=== PATIENT | male | born 1935 | race Caucasian/White ===

== ENCOUNTER → 2016-08-01 | Outpatient (CLI) | payer OTHER ==
[~2016-08-01] MED LIST: ASPI81TA28 PO; CHOL100027 PO; CITA40TA12 PO; CLOP1TAB15 PO; FERR325T51 PO; LPR25 PO; PRAV20TA2 PO
[2016-08-01 14:38] LABS: BASO % 0.4 %; BASO ABS # 0.02 K/uL (0-0.2); COMPLETE YES; EOS % 2.5 %; HEMATOCRIT 36.7 % (42-52); IG% 0.4 %; LYMPH % 25.9 %; LYMPH ABS # 1.47 K/uL (1.2-3.4); MEAN CELL VOLUME 93.4 fL (80-100); MEAN CORPUSCULAR HEMOGLOBIN 29.5 pg (25-34); MEAN CORPUSCULAR HGB CONC 31.6 g/dl (32-36); MEAN PLATELET VOLUME 11.8 fL (7.4-10.4); MONO % 13.9 %; NEUT % 56.9 %; PLATELET COUNT 134 K/uL (130-400); RED BLOOD COUNT 3.93 M/uL (4.7-6.1); WHITE BLOOD COUNT 5.68 K/uL (4.8-10.8)
[2016-08-01 14:58] LABS: ALT/SGPT 26 U/L (12-78); AST/SGOT 20 U/L (15-37); BLOOD UREA NITROGEN 16 mg/dl (7-18); BUN/CREATININE RATIO 13.1 (10-20); CALCIUM 8.1 mg/dl (8.5-10.1); CARBON DIOXIDE 27 mmol/L (21-32); CHLORIDE 109 mmol/L (98-107); GLUCOSE 90 mg/dl (70-99); POTASSIUM 4.2 mmol/L (3.5-5.1); SODIUM 143 mmol/L (136-145)
[2016-08-01 15:09] LABS: CHOLESTEROL 92 mg/dl (0-200); CHOLESTEROL/HDL RATIO 2.7; FERRITIN 164.4 ng/ml (8.0-388.0); HDL CHOLESTEROL 34 mg/dl; LDL CHOLESTEROL CALCULATED 30 mg/dl; TRIGLYCERIDES 142 mg/dl (0-150); VERY LOW DENSITY LIPOPROT CALC 28 mg/dl
== END | disposition home or self-care (01) ==
LOC: C.LAB1850 13:26
PROVIDERS: ATTEND Internal Medicine
DX: E78.00 Pure hypercholesterolemia, unspecified (principal); D64.9 Anemia, unspecified; I35.0 Nonrheumatic aortic (valve) stenosis; R06.09 Other forms of dyspnea; I65.29 Occlusion and stenosis of unspecified carotid artery

== ENCOUNTER → 2016-12-13 | Outpatient (CLI) | payer OTHER ==
--- NOTE | 2016-12-13 16:35 | DIAGNOSTIC IMAGING REPORT ---
(CHEST) THORAX WITHOUT CT DOSE: 520.92 mGycm HISTORY: Pulmonary nodule. Follow-up. TECHNIQUE: Multiaxial CT images of the chest were performed without contrast. A dose lowering technique was utilized adhering to the principles of ALARA. COMPARISON: Chest CT 04/09/2016. Chest CT 11/26/2014. FINDINGS: The central airways are patent. No pleural effusions. No pneumothorax. Bibasilar subpleural reticulation is again noted and remains unchanged. This consistent with chronic interstitial/fibrotic change. No new focal lung consolidations. No evidence for bone edema. Stable 7 mm nodule within the right lung base on image 218. Stable 7 mm right lower lobe pulmonary nodule on image 186. Stable 4 mm nodule within the left lower lobe on image 191. Stable 5 mm nodule within the left lower lobe in image 213. No new pulmonary nodules. Stable prominent right peritracheal lymph node measuring 1.8 x 1.1 cm. No hilar lymphadenopathy. Normal caliber thoracic aorta. Coronary artery calcifications. The unenhanced liver, spleen, and adrenal glands are unremarkable. Cholelithiasis. No suspicious lytic or blastic osseous lesions. Poststernotomy changes. Scoliosis, unchanged. IMPRESSION: 1. Stable subcentimeter pulmonary nodules. These demonstrate greater than 2 year stability and are therefore considered to be benign. 2. Mild chronic bibasilar interstitial changes. No new focal lung consolidations. 3. Cholelithiasis. 4. Stable prominent paratracheal lymph node. Electronically signed by: Bruce Rhodes M.D. 12/13/2016 4:33 PM Dictated Date/Time: 12/13/2016 4:26 PM
== END | disposition home or self-care (01) ==
LOC: C.CTS 16:03
PROVIDERS: ATTEND Internal Medicine
DX: R91.1 Solitary pulmonary nodule (principal); R91.8 Other nonspecific abnormal finding of lung field; K80.20 Calculus of gallbladder without cholecystitis without obstruction; R59.9 Enlarged lymph nodes, unspecified

== ENCOUNTER 2017-04-20 12:01 | Observation (INO) | payer OTHER ==
[~2017-04-20] VITALS: Ht 172.7 cm; Wt 84.0 kg
--- NOTE | 2017-04-20 12:35 | EMERGENCY ROOM VISIT NOTE ---
History Report prepared by Rafaela: Tod Lang Under the Supervision of: Dr. Ben Joseph M.D. First contact with patient: 12:14 Chief Complaint: SYNCOPE (NEAR SYNCOPE) Stated Complaint: DIZZY/FAINT History of Present Illness The patient is an 81 year old white male with a past medical history of 7 cardiac bypasses, severe aortic stenosis, HTN, NSTEMI, depressive disorder, diverticulosis, lumbosacral neuritis, partial colectomy who presents to the ED with a cc of sudden dizziness and sweating beginning prior to arrival. Pt was in religion and suddenly became dizzy. He notes he was very hot, too coat off, and became nauseous. Pt started to gag but did not vomit. Pt reports he did not eat much for breakfast. Positive fatigue for the past few days, accidently skipping his medication yesterday morning, diarrhea and taking an antidiuretic, weight gain of 20lbs over the past 6 months. Negative chest pain, changes in diet, current nausea, cough, fevers, chills, changes in medication. Pt notes he was supposed to have heart valve surgery, but he elected not to because it was too dangerous. 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 A total of ten systems were reviewed and were otherwise negative. Past Medical & Surgical Medical Problems: (1) Aortic stenosis (2) Aortocoronary Bypass (3) Depressive Disorder Nec (4) Diverticulosis Colon (W/O Ment Of Hemorrhage) (5) Hypertension Nos (6) Lumbosacral 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 (8) NSTEMI hx of cad cabg (9) Syncope Surgical Problems: (1) History of partial colectomy (2) S/P CABG (coronary artery bypass graft) Family History Cancer Heart disease Hypertension Seizures Social History Smoking Status: Never Smoker Alcohol Use: none Marital Status: Housing Status: lives with roommate Occupation Status: retired Current/Historical Medications Scheduled Aspirin (Aspirin Ec), 81 MG PO DAILY Atorvastatin (Lipitor), 80 MG PO DAILY Cholecalciferol (Vitamin D 1000 Unit), 1,000 INTER.UNIT PO DAILY Citalopram Hydrobromide (Celexa), 40 MG PO DAILY Clopidogrel (Plavix), 75 MG PO DAILY Metoprolol Tartrate (Lopressor) (Lopressor), 25 MG PO BID Allergies Coded Allergies: No Known Allergies (Verified , 04/20/17) Physical Exam Vital Signs Date Time Temp Pulse Resp B/P (MAP) Pulse Ox O2 Delivery O2 Flow Rate FiO2 04/20/17 14:20 96 Room Air 04/20/17 14:08 53 20 101/55 96 Room Air 04/20/17 12:39 95 Room Air 04/20/17 12:22 54 04/20/17 12:08 36.4 57 16 115/67 98 Room Air Physical Exam GENERAL: Awake, alert, well-appearing, NAD HENT: Normocephalic, atraumatic. EYES: Normal conjunctiva. Sclera non-icteric. NECK: Supple. No nuchal rigidity. FROM. RESPIRATORY: CTAB, no rhonchi, wheezing, crackles CARDIAC: Harsh systolic ejection murmur, no MRG ABDOMEN: Soft, NTND, BS+, surgical scars over the abdomen, non surgical MSK: No chest wall TTP, no LE edema NEURO: CN 2-12 intact, 5/5 upper and lower extremity strength, no dysmetria, no drift, good finger to nose, no sensory deficits. SKIN: No rash or jaundice noted. Midline sternotomy scar form previous surgery. Incision scar on the medical aspect of left calf. Medical Decision & Procedures ER Provider Diagnostic Interpretation: Radiology results as stated below per my review and radiologist interpretation: CT OF THE HEAD WITHOUT CONTRAST CLINICAL HISTORY: Weakness. Dizzy. COMPARISON STUDY: Head CT December 26, 2015. CT DOSE: 537.48 mGy.cm TECHNIQUE: Helical axial images of the head were obtained without IV contrast. Automated exposure control was utilized for the study. A dose lowering technique was utilized adhering to the principles of ALARA. FINDINGS: No acute intracranial hemorrhage, midline shift or mass effect is present. Encephalomalacia within left cerebellar hemisphere is noted. The patient is status post left occipital craniectomy. Encephalomalacia within the anterior right frontal lobe is unchanged. White matter hypodensities suggest extensive small vessel disease. Ventricular system is stable. Basilar cisterns are patent. There are no extra-axial collections. There are no findings to suggest acute dural sinus thrombosis or acute territorial infarct. There are no significant calvarial abnormalities. Visualized portions of the sinuses and mastoid air cells are clear. Small defect within the outer table of the right frontal bone is unchanged. IMPRESSION: No acute intracranial findings. No change in appearance of the brain. Electronically signed by: Hernandez Cali M.D. 04/20/2017 1:54 PM Dictated Date/Time: 04/20/2017 1:49 PM CHEST ONE VIEW PORTABLE CLINICAL HISTORY: Weakness. COMPARISON STUDY: Chest CT December 13, 2016 per FINDINGS: Median sternotomy wires are noted as well as mediastinal surgical clips. Cardiomegaly is unchanged. There is no evidence for pulmonary edema. There is no consolidation to suggest pneumonia. The appearance of the chest is unchanged. IMPRESSION: No acute cardiopulmonary findings. No change in appearance of the chest. Electronically signed by: Hernandez Cali M.D. 04/20/2017 1:09 PM Dictated Date/Time: 04/20/2017 1:08 PM Laboratory Results 04/20/17 12:39 Red Blood Count 4.40, Mean Corpuscular Volume 90.7, Mean Corpuscular Hemoglobin 29.5, Mean Corpuscular Hemoglobin Concent 32.6, Mean Platelet Volume 11.4, Neutrophils (%) (Auto) 69.4, Lymphocytes (%) (Auto) 18.6, Monocytes (%) (Auto) 9.0, Eosinophils (%) (Auto) 2.4, Basophils (%) (Auto) 0.3, Neutrophils # (Auto) 4.61, Lymphocytes # (Auto) 1.24, Monocytes # (Auto) 0.60, Eosinophils # (Auto) 0.16, Basophils # (Auto) 0.02 04/20/17 12:39 Test 04/20/17 12:39 04/20/17 13:19 White Blood Count 6.65 K/uL (4.8-10.8) Red Blood Count 4.40 M/uL (4.7-6.1) Hemoglobin 13.0 g/dL (14.0-18.0) Hematocrit 39.9 % (42-52) Mean Corpuscular Volume 90.7 fL (80-100) Mean Corpuscular Hemoglobin 29.5 pg (25-34) Mean Corpuscular Hemoglobin Concent 32.6 g/dl (32-36) Platelet Count 148 K/uL (130-400) Mean Platelet Volume 11.4 fL (7.4-10.4) Neutrophils (%) (Auto) 69.4 % Lymphocytes (%) (Auto) 18.6 % Monocytes (%) (Auto) 9.0 % Eosinophils (%) (Auto) 2.4 % Basophils (%) (Auto) 0.3 % Neutrophils # (Auto) 4.61 K/uL (1.4-6.5) Lymphocytes # (Auto) 1.24 K/uL (1.2-3.4) Monocytes # (Auto) 0.60 K/uL (0.11-0.59) Eosinophils # (Auto) 0.16 K/uL (0-0.5) Basophils # (Auto) 0.02 K/uL (0-0.2) RDW Standard Deviation 50.5 fL (36.4-46.3) RDW Coefficient of Variation 15.1 % (11.5-14.5) Immature Granulocyte % (Auto) 0.3 % Immature Granulocyte # (Auto) 0.02 K/uL (0.00-0.02) Prothrombin Time 10.9 SECONDS (9.0-12.0) Prothromb Time International Ratio 1.0 (0.9-1.1) Activated Partial Thromboplast Time 23.6 SECONDS (21.0-31.0) Partial Thromboplastin Ratio 0.9 Anion Gap 6.0 mmol/L (3-11) Estimated GFR () 73.4 Estimated GFR (Non- 63.3 BUN/Creatinine Ratio 13.0 (10-20) Calcium Level 8.5 mg/dl (8.5-10.1) Magnesium Level 1.9 mg/dl (1.8-2.4) Total Bilirubin 1.2 mg/dl (0.2-1) Direct Bilirubin 0.2 mg/dl (0-0.2) Aspartate Amino Transf (AST/SGOT) 25 U/L (15-37) Alanine Aminotransferase (ALT/SGPT) 29 U/L (12-78) Alkaline Phosphatase 125 U/L (45-117) Troponin I 0.124 ng/ml (0-0.045) Pro-B-Type Natriuretic Peptide 1216 pg/ml (0-1800) Total Protein 7.3 gm/dl (6.4-8.2) Albumin 3.6 gm/dl (3.4-5.0) Lipase 136 U/L (73-393) Thyroid Stimulating Hormone (TSH) 5.520 uIu/ml (0.300-4.500) Free Thyroxine 1.10 ng/dl (0.80-1.60) Free Triiodothyronine 3.26 pg/ml (2.30-4.20) Urine Color ORANGE Urine Appearance CLEAR (CLEAR) Urine pH 5.5 (4.5-7.5) Urine Specific [place] 1.021 (1.000-1.030) Urine Protein 2+ (NEG) Urine Glucose (UA) NEG (NEG) Urine Ketones TRACE (NEG) Urine Occult Blood NEG (NEG) Urine Nitrite NEG (NEG) Urine Bilirubin NEG (NEG) Urine Urobilinogen POS (NEG) Urine Leukocyte Esterase SMALL (NEG) Urine WBC (Auto) 10-30 /hpf (0-5) Urine RBC (Auto) 5-10 /hpf (0-4) Urine Hyaline Casts (Auto) 10-30 /lpf (0-5) Urine Epithelial Cells (Auto) 20-30 /lpf (0-5) Urine Bacteria (Auto) NEG (NEG) Laboratory results reviewed by me Medications Administered Medications (Trade) Dose Ordered Sig/Danny Route Start Time Stop Time Status Last Admin Dose Admin Aspirin (Aspirin Chew) 324 mg NOW STAT PO 04/20/17 13:50 04/20/17 13:51 DC 04/20/17 14:07 324 MG ECG Indication: weakness Rate (beats per minute): 54 Rhythm: sinus bradycardia Findings: ST depression (Trace depression in the anterior and lateral leads - appears chronic), T-wave inversion (AVL), left axis deviation, other (normal intervals) Comparison ECG Date: 12/13/14 Change: Left axis and TWI are old. Fairly unchanged. - ST depression appears chronic. ED Course 1216: The patient was evaluated in room C02B. A complete history and physical exam was performed. 1334: I attempted to reevaluate the patient, but he was in the restroom. 1345: Upon reexamination, the patient was resting comfortably. I discussed the test results and treatment plan with him. After a long discussion, the patient has agreed for further evaluation. The patient will be evaluated for further management. 1418: I discussed the patient's case with Dr. Tello, Cardiology. He will evaluate the patient's previous EKGs. 1426: I spoke with Dr. Tello again. He states there is no appreciable acute differences between EKGs to warrant a change in therapy. 1434: I discussed the patient's case with Dr. Sher, [facility] Hospitalist. The patient will be evaluated for further management and care. Medical Decision The patient is an 81 year old white male with a past medical history of 7 cardiac bypasses, severe aortic stenosis, HTN, NSTEMI, depressive disorder, diverticulosis, lumbosacral neuritis, partial colectomy who presents to the ED with a cc of sudden dizziness and sweating beginning prior to arrival. Differential diagnosis: Etiologies such as metabolic, infection, hypo/hyperglycemia, electrolyte abnormalities, cardiac sources, intracerebral event, toxicologic, neurologic, as well as others were entertained. Patient was seen and evaluated at the bedside. Patient is an 81-year-old with a very extensive cardiac history with known CABG, stents of his bypass, and severe aortic stenosis. Patient has had some progressively worsening weakness. Patient did have some dizziness while standing in religion this morning. Patient did feel very warm and felt nauseated. Patient denies any chest pain. She does complain of some mild chronic shortness of breath. Patient states that he was physically evaluated for an aortic valve repair however he declined would not like 1 at this time. Patient did have an EKG completed which does not show any acute ischemic changes. Patient does have a stable hemoglobin in his white blood cell count is normal. Patient did have elevated troponin. His TSH was also elevated. I did discuss the patient with the hospitalist as well as the monument setter. The monument setter agreed that there was no other intervention that was required at this time even with positive troponin. Patient denies any chest pain or shortness of breath at this time. The monument setter also did review his current and most recent EKG. Patient was given a full dose aspirin. The hospitalist agreed to further evaluate and treat the patient. Patient was admitted to the medicine service. Medication Reconcilliation Current Medication List: was personally reviewed by oh Blood Pressure Screening Patient's blood pressure: Normal blood pressure Blood pressure disposition: Did not require urgent referral Consults Time Called: 1410 Consulting Physician: Dr. Tello, Cardiology Returned Call: [phone] I discussed the patient's case with Dr. Tello, Cardiology. He will evaluate the patient's previous EKGs. 1426: I spoke with Dr. Tello again. He states there is no appreciable acute differences between EKGs to warrant a change in therapy. Additional Consults: Time Called: 1352 Consulted Physician: Dr. Sher, [facility] Hospitalist Returned Call: [phone] Additional Comments: I discussed the patient's case with Dr. Sher [facility] Hospitalist. The patient will be evaluated for further management and care. Impression Primary Impression: Elevated troponin I level Additional Impressions: Dizziness Aortic stenosis Scribe Attestation The scribe's documentation has been prepared under my direction and personally reviewed by me in its entirety. I confirm that the note above accurately reflects all work, treatment, procedures, and medical decision making performed by me. Departure Information Dispostion Being Evaluated By Hospitalist Referrals ,Kurt Nova M.D. (PCP) Patient Instructions [facility] Problem Qualifiers Additional Impressions: Aortic stenosis Cardiac valve disease etiology: etiology unspecified Qualified Codes: I35.0 - Nonrheumatic aortic (valve) stenosis
[2017-04-20 12:58] LABS: BASO % 0.3 %; BASO ABS # 0.02 K/uL (0-0.2); EOS % 2.4 %; EOS ABS # 0.16 K/uL (0-0.5); HEMATOCRIT 39.9 % (42-52); IG# 0.02 K/uL (0.00-0.02); LYMPH % 18.6 %; LYMPH ABS # 1.24 K/uL (1.2-3.4); MEAN CELL VOLUME 90.7 fL (80-100); MEAN CORPUSCULAR HEMOGLOBIN 29.5 pg (25-34); MEAN CORPUSCULAR HGB CONC 32.6 g/dl (32-36); MEAN PLATELET VOLUME 11.4 fL (7.4-10.4); NEUT % 69.4 %; NEUT ABS # 4.61 K/uL (1.4-6.5); PLATELET COUNT 148 K/uL (130-400); RED CELL DISTRIBUTION WIDTH CV 15.1 % (11.5-14.5); RED CELL DISTRIBUTION WIDTH SD 50.5 fL (36.4-46.3); WHITE BLOOD COUNT 6.65 K/uL (4.8-10.8)
--- NOTE | 2017-04-20 13:10 | DIAGNOSTIC IMAGING REPORT ---
CHEST ONE VIEW PORTABLE CLINICAL HISTORY: Weakness. COMPARISON STUDY: Chest CT December 13, 2016 per FINDINGS: Median sternotomy wires are noted as well as mediastinal surgical clips. Cardiomegaly is unchanged. There is no evidence for pulmonary edema. There is no consolidation to suggest pneumonia. The appearance of the chest is unchanged. IMPRESSION: No acute cardiopulmonary findings. No change in appearance of the chest. Electronically signed by: Hernandez Cali M.D. 04/20/2017 1:09 PM Dictated Date/Time: 04/20/2017 1:08 PM
[2017-04-20 13:11] LABS: ALBUMIN 3.6 gm/dl (3.4-5.0); ALT/SGPT 29 U/L (12-78); AST/SGOT 25 U/L (15-37); BLOOD UREA NITROGEN 14 mg/dl (7-18); CALCIUM 8.5 mg/dl (8.5-10.1); CARBON DIOXIDE 25 mmol/L (21-32); CREATININE 1.09 mg/dl (0.60-1.40); GLUCOSE 119 mg/dl (70-99); LIPASE 136 U/L (73-393); POTASSIUM 3.6 mmol/L (3.5-5.1); SODIUM 137 mmol/L (136-145)
[2017-04-20 13:15] LABS: PTT PATIENT 23.6 SECONDS (21.0-31.0)
[2017-04-20] MEDS ORDERED: ATOR-26 PO (13:30)
[2017-04-20] MEDS ORDERED: METO25TA56 PO (13:30)
[2017-04-20 13:34] LABS: ALKALINE PHOSPHATASE 125 U/L (45-117); TOTAL PROTEIN 7.3 gm/dl (6.4-8.2)
[2017-04-20] MEDS ORDERED: ASPIRIN 324 MG CHEW PO STA (13:50)
--- NOTE | 2017-04-20 13:55 | DIAGNOSTIC IMAGING REPORT ---
CT OF THE HEAD WITHOUT CONTRAST CLINICAL HISTORY: Weakness. Dizzy. COMPARISON STUDY: Head CT December 26, 2015. CT DOSE: 537.48 mGy.cm TECHNIQUE: Helical axial images of the head were obtained without IV contrast. Automated exposure control was utilized for the study. A dose lowering technique was utilized adhering to the principles of ALARA. FINDINGS: No acute intracranial hemorrhage, midline shift or mass effect is present. Encephalomalacia within left cerebellar hemisphere is noted. The patient is status post left occipital craniectomy. Encephalomalacia within the anterior right frontal lobe is unchanged. White matter hypodensities suggest extensive small vessel disease. Ventricular system is stable. Basilar cisterns are patent. There are no extra-axial collections. There are no findings to suggest acute dural sinus thrombosis or acute territorial infarct. There are no significant calvarial abnormalities. Visualized portions of the sinuses and mastoid air cells are clear. Small defect within the outer table of the right frontal bone is unchanged. IMPRESSION: No acute intracranial findings. No change in appearance of the brain. Electronically signed by: Hernandez Cali M.D. 04/20/2017 1:54 PM Dictated Date/Time: 04/20/2017 1:49 PM
[2017-04-20 14:20] VITALS: O2SAT 96; Ht 172.7 cm; Wt 84.0 kg
[2017-04-20] MEDS ORDERED: ACETAMINOPHEN 325 MG TAB PO PRN (16:00)
[2017-04-20] MEDS ORDERED: PHARMACIST DISCHARGE MED REC CONSULT PRN (16:00)
--- NOTE | 2017-04-20 16:05 | History and Physical ---
History & Physical Date & Time of Service: Apr 20, 2017 at 15:04 Chief Complaint: Dizzy/Faint Primary Care Physician: Kurt Crawley M.D. History of Present Illness Mr. Briceño was in buddhism this morning when he became hot, dizzy and shaky. His friend next to him noticed he didn't appear well and had him sit down and the patient thinks he lost consciousness. He did not fall. He denies recent illness though he states he's been nauseas and had diarrhea with multiple bowel movements per day. He takes an antidiarrhea pill which has not been helping over the last few days. He feels hungry now. He has been having sob for two years which is stable. He was supposed to have a heart valve replacement but did not want to take a risk. ROS Constitutional: no chills, aches, sweats or fever Respiratory: no cough, sputum, or wheezing Cardiac: no chest pain, palpitations, edema, orthopnea GI: no abdominal pain, nausea, vomiting, diarrhea or constipation : no dysuria or hesitancy Extremities: no joint pain or weakness Skin: no rash All other systems reviewed and negative Past Medical/Surgical History Medical Problems: Coronary artery disease status post 6 vessel CABG 1996, and stent to the SVG to RCA in 2003 Hypertension. Severe aortic stenosis. History of Colon cancer, no recurrence after resection 2001. Depression. Dyslipidemia. Idiopathic peripheral neuropathy. PAST SURGICAL HISTORY: 1. CABG, 6 vessel 2. Partial colectomy for colon cancer 2001. 3. Surgery for left sided trigeminal neuralgia with Margarito patch Family History Cancer Heart disease Hypertension Seizures Social History Smoking Status: Never Smoker Smokeless Tobacco Use: No Alcohol Use: occasionally (maybe once per month) Drug Use: none Marital Status: single Housing status: lives with roommate Occupational Status: retired Immunizations History of Influenza Vaccine: No History of Pneumococcal: No Multi-Drug Resistant Organisms History of MDRO: No Allergies Coded Allergies: No Known Allergies (Verified , 04/20/17) Home Medications Scheduled Aspirin (Aspirin Ec), 81 MG PO DAILY Atorvastatin (Lipitor), 80 MG PO DAILY Cholecalciferol (Vitamin D 1000 Unit), 1,000 INTER.UNIT PO DAILY Citalopram Hydrobromide (Celexa), 40 MG PO DAILY Clopidogrel (Plavix), 75 MG PO DAILY Metoprolol Tartrate (Lopressor) (Lopressor), 25 MG PO BID Physical Exam Vital Signs Date Time Temp Pulse Resp B/P (MAP) Pulse Ox O2 Delivery O2 Flow Rate FiO2 04/20/17 14:20 96 Room Air 04/20/17 14:08 53 20 101/55 96 Room Air 04/20/17 12:39 95 Room Air 04/20/17 12:22 54 04/20/17 12:08 36.4 57 16 115/67 98 Room Air General: no distress Eyes: normal inspection, PERLL Respiratory: chest non tender, clear to auscultation, normal breath sounds, no respiratory distress, no accessory muscle use Cardiac: regular rate and rhythm, no rub or gallop, 3/6 systolic murmur RUSB, no edema, no jvd GI/: active bowel sounds, no abd pain or tenderness, soft, non distended Extremities: normal range of motion, normal strength, non tender Neuro/Psych: alert and oriented x 3, normal mood and affect Skin: normal color, dry Diagnostics Laboratory Results Results Past 24 Hours Test 04/20/17 12:39 04/20/17 13:19 Range/Units White Blood Count 6.65 4.8-10.8 K/uL Red Blood Count 4.40 4.7-6.1 M/uL Hemoglobin 13.0 14.0-18.0 g/dL Hematocrit 39.9 42-52 % Mean Corpuscular Volume 90.7 80-100 fL Mean Corpuscular Hemoglobin 29.5 25-34 pg Mean Corpuscular Hemoglobin Concent 32.6 32-36 g/dl Platelet Count 148 130-400 K/uL Mean Platelet Volume 11.4 7.4-10.4 fL Neutrophils (%) (Auto) 69.4 % Lymphocytes (%) (Auto) 18.6 % Monocytes (%) (Auto) 9.0 % Eosinophils (%) (Auto) 2.4 % Basophils (%) (Auto) 0.3 % Neutrophils # (Auto) 4.61 1.4-6.5 K/uL Lymphocytes # (Auto) 1.24 1.2-3.4 K/uL Monocytes # (Auto) 0.60 0.11-0.59 K/uL Eosinophils # (Auto) 0.16 0-0.5 K/uL Basophils # (Auto) 0.02 0-0.2 K/uL RDW Standard Deviation 50.5 36.4-46.3 fL RDW Coefficient of Variation 15.1 11.5-14.5 % Immature Granulocyte % (Auto) 0.3 % Immature Granulocyte # (Auto) 0.02 0.00-0.02 K/uL Prothrombin Time 10.9 9.0-12.0 SECONDS Prothromb Time International Ratio 1.0 0.9-1.1 Activated Partial Thromboplast Time 23.6 21.0-31.0 SECONDS Partial Thromboplastin Ratio 0.9 Sodium Level 137 136-145 mmol/L Potassium Level 3.6 3.5-5.1 mmol/L Chloride Level 106 98-107 mmol/L Carbon Dioxide Level 25 21-32 mmol/L Anion Gap 6.0 3-11 mmol/L Blood Urea Nitrogen 14 7-18 mg/dl Creatinine 1.09 0.60-1.40 mg/dl Estimated GFR () 73.4 Estimated GFR (Non- 63.3 BUN/Creatinine Ratio 13.0 10-20 Random Glucose 119 70-99 mg/dl Calcium Level 8.5 8.5-10.1 mg/dl Magnesium Level 1.9 1.8-2.4 mg/dl Total Bilirubin 1.2 0.2-1 mg/dl Direct Bilirubin 0.2 0-0.2 mg/dl Aspartate Amino Transf (AST/SGOT) 25 15-37 U/L Alanine Aminotransferase (ALT/SGPT) 29 12-78 U/L Alkaline Phosphatase 125 45-117 U/L Troponin I 0.124 0-0.045 ng/ml Pro-B-Type Natriuretic Peptide 1216 0-1800 pg/ml Total Protein 7.3 6.4-8.2 gm/dl Albumin 3.6 3.4-5.0 gm/dl Lipase 136 73-393 U/L Thyroid Stimulating Hormone (TSH) 5.520 0.300-4.500 uIu/ml Urine Color ORANGE Urine Appearance CLEAR CLEAR Urine pH 5.5 4.5-7.5 Urine Specific [place] 1.021 1.000-1.030 Urine Protein 2+ NEG Urine Glucose (UA) NEG NEG Urine Ketones TRACE NEG Urine Occult Blood NEG NEG Urine Nitrite NEG NEG Urine Bilirubin NEG NEG Urine Urobilinogen POS NEG Urine Leukocyte Esterase SMALL NEG Urine WBC (Auto) 10-30 0-5 /hpf Urine RBC (Auto) 5-10 0-4 /hpf Urine Hyaline Casts (Auto) 10-30 0-5 /lpf Urine Epithelial Cells (Auto) 20-30 0-5 /lpf Urine Bacteria (Auto) NEG NEG Microbiology Results 04/20/17 Urine Culture, Received Pending Diagnostic Radiology CHEST ONE VIEW PORTABLE CLINICAL HISTORY: Weakness. COMPARISON STUDY: Chest CT December 13, 2016 per FINDINGS: Median sternotomy wires are noted as well as mediastinal surgical clips. Cardiomegaly is unchanged. There is no evidence for pulmonary edema. There is no consolidation to suggest pneumonia. The appearance of the chest is unchanged. IMPRESSION: No acute cardiopulmonary findings. No change in appearance of the chest. CT OF THE HEAD WITHOUT CONTRAST CLINICAL HISTORY: Weakness. Dizzy. COMPARISON STUDY: Head CT December 26, 2015. CT DOSE: 537.48 mGy.cm TECHNIQUE: Helical axial images of the head were obtained without IV contrast. Automated exposure control was utilized for the study. A dose lowering technique was utilized adhering to the principles of ALARA. FINDINGS: No acute intracranial hemorrhage, midline shift or mass effect is present. Encephalomalacia within left cerebellar hemisphere is noted. The patient is status post left occipital craniectomy. Encephalomalacia within the anterior right frontal lobe is unchanged. White matter hypodensities suggest extensive small vessel disease. Ventricular system is stable. Basilar cisterns are patent. There are no extra-axial collections. There are no findings to suggest acute dural sinus thrombosis or acute territorial infarct. There are no significant calvarial abnormalities. Visualized portions of the sinuses and mastoid air cells are clear. Small defect within the outer table of the right frontal bone is unchanged. IMPRESSION: No acute intracranial findings. No change in appearance of the brain. EKG Sinus bradycardia Left axis deviation Incomplete right bundle branch block Minimal voltage criteria for LVH, may be normal variant ST & T wave abnormality, consider lateral ischemia Abnormal ECG When compared with ECG of 13-DEC-2014 23:05, Vent. rate has decreased BY 29 BPM Inverted T waves have replaced nonspecific T wave abnormality in Lateral brian Impression Assessment and Plan Mr. Briceño is an 81 year old man here for syncope Syncope - admit obs tele - trend troponin - initial was 0.124 - patient appears to have chronically elevated trop - last echo 07/2015 showed severe with EF of 60% - repeat echo - CT head did not show fracture or hemorrhage, pending MRI combo, carotid US - cbc, prp in am - gentle IVF - consulted neurology, cardiology Chronic diarrhea - c.diff pending Hypothyroid - TSH 5.52 - Free T3, T4 pending CAD - continue statin, plavix, ASA Level of Care Telemetry Advanced Directives Existing Advance Directive: No Existing Living Will: No Existing Power of Metal Inspector: Yes (sister Debbie Cameron) Existing Health Care Proxy: No Resuscitation Status FULL RESUSCITATION VTE Prophylaxis VTE Risk Assessment Done? 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 Discussed with NEAL Ace and agree with findings and plan as documented in the note. Any exceptions or clarifications are listed here: Patient presented to the ER after having a syncopal episode while standing in buddhism today. He reports severe fatigue for several days, as well as a pounding bitemporal headache several days ago. He denies fevers, chest pain or pressure. He has chronic dyspnea on exertion and that has not worsened. He was standing today in buddhism and felt very flushed, hot, sweaty, and nauseated, and then he thinks he passed out as he can't remember part of the buddhism service. His troponin is elevated in the ER at 0.124, however this seems to be a chronic elevation from previous. When NEAL Ace first went to speak with him, she was washing her hands and he asked her "are you washing your hands or taking a shower?" When I saw him, his mental status was quite clear, and he had no further complaints. He was feeling much better. Vital signs reviewed NAD, AAO 3, able to name the months of the year backwards without mistake RRR, 3/6 SYEDA heard best at the RUSB Lungs clear to auscultation bilaterally, no wheezes crackles or rhonchi Abdomen positive bowel sounds, soft, nontender, nondistended, laparotomy midline incisional scar present Extremities no edema Skin no rashes Neuro--cranial nerves II through XII intact except right pupil is minimally reactive which as per report is a chronic issue, strength, DTRs, and sensation to light touch are intact in the upper and lower extremities, gait was not tested ECG, labs, and all imaging studies personally reviewed by me. This patient is an 81-year-old male with a history of CAD, hypertension, severe aortic stenosis, hyperlipidemia, history of colon cancer status post partial colectomy, depression, peripheral neuropathy, here with syncope. Given some subtle mental status changes, there is a possibility of a TIA as well. Unfortunately, the patient reports that he cannot have an MRI due to a Margarito patch in the side of his head from his previous trigeminal nerve surgery. -Syncope-could be secondary to his severe aortic stenosis and volume changes. He has some chronic diarrhea and possibly poor by mouth intake recently, along with severe fatigue and a headache a few days ago. Could have some sort of viral syndrome or Lyme disease from when he was crawling in the brush 4 weeks ago-admit to telemetry, cardiac workup as below, check Lyme titer, provide IV fluids -Neuro checks, neurology consult appreciated, will check CT head in 24 hours to look for stroke. Continue aspirin, Plavix, add normal saline 75 ML's per hour to keep blood pressure up in case of acute CVA versus TIA -For elevated troponin, he is asymptomatic and ECG is unchanged-continue metoprolol, aspirin, Plavix, trend troponins, check echocardiogram, consult cardiology for further recommendations Documented By: Candie Sher
[2017-04-20 16:45] VITALS: BP 137/66; PULSE 53; TEMP 36.9; O2SAT 97
[2017-04-20] MEDS ORDERED: SODIUM CHLORIDE 0.9% 1000ML 1,000 ML IV SCH (16:45)
[2017-04-20] MEDS: SODIUM CHLORIDE 0.9% 1000ML 1,000 ML IV SCH (18:11)
--- NOTE | 2017-04-20 18:17 | DIAGNOSTIC IMAGING REPORT ---
CAROTID ARTERY ULTRASOUND CLINICAL HISTORY: Stroke COMPARISON STUDY: None. TECHNIQUE: Real-time, grayscale, and color Doppler sonography of the carotid and vertebral arteries was performed. Images were viewed in the transverse and longitudinal planes. FINDINGS: There is extensive atherosclerotic plaque. Velocity measurements are listed below. COMMON CAROTID PEAK SYSTOLIC VELOCITY (CM/S): RIGHT 65 LEFT 107 ICA PEAK SYSTOLIC VELOCITY (CM/S): RIGHT 412 LEFT 211 Systolic ratio between the right internal to common carotid artery is markedly elevated 6.3. Systolic ratio between the left internal carotid to common carotid artery is elevated at 2. There is probable bidirectional flow within the right vertebral artery. The external carotid arteries are patent. Blood pressure in the right arm measured 134/61. Blood pressure in the left arm measured 133/63. IMPRESSION: 1. Findings suggestive of severe (>70%) stenosis of the proximal right internal carotid artery. 2. Findings suggestive of 50-69% stenosis of the proximal left internal carotid artery. 3. Bidirectional flow within the right vertebral artery. Electronically signed by: Hernandez Cali M.D. 04/20/2017 6:16 PM Dictated Date/Time: 04/20/2017 6:11 PM
[2017-04-20] MEDS ORDERED: IV FLUIDS COMPLETED PRN (19:00)
[2017-04-20 19:39] VITALS: BP 136/73; PULSE 54; TEMP 36.6; O2SAT 93
[2017-04-20] MEDS: METOPROLOL TARTRATE 25 MG TAB PO SCH (20:17)
[2017-04-20] MEDS: HEPARIN SOD 5000 UNIT/0.5 ML CARP SQ SCH (20:18)
--- NOTE | 2017-04-20 23:08 | DIAGNOSTIC IMAGING REPORT ---
CT ANGIOGRAPHY OF THE HEAD CLINICAL HISTORY: Carotid artery stenosis. Weakness. Dizziness. COMPARISON STUDY: Head CT December 26, 2015 and April 20, 2017. TECHNIQUE: Helical axial images of the head were obtained following uneventful intravenous administration of 119 cc of Optiray 320. A dose lowering technique was utilized adhering to the principles of ALARA. CT DOSE: 537.96 mGy.cm FINDINGS: The bilateral M1, M2, A1 and A2 segments are patent. There is asymmetric diminished caliber of the distal cervical portion of the right internal carotid artery as well as the petrous and cavernous portions of the right internal carotid artery. There is moderate to severe stenosis of the cavernous portion of the right internal carotid artery. No intracranial aneurysm is identified. Anterior communicating artery is noted as well as a right posterior communicating artery. No abrupt vessel cut off is identified within the intracranial circulation. The patient is status post left occipital craniectomy. Left cerebellar encephalomalacia is unchanged. Ventricular system is stable. Basilar cisterns are patent. There are no extra-axial collections. There is mild polypoid mucosal thickening of the maxillary sinuses. Orbits are unremarkable. No acute intracranial hemorrhage is identified on this contrast enhanced study. IMPRESSION: 1. No abrupt vessel cut off within the intracranial circulation. No intracranial aneurysm. 2. Moderate to severe stenosis of the cavernous portion of the right internal carotid artery. Asymmetric decreased caliber of the distal cervical and petrous portions of the right internal carotid artery likely due to severe proximal right internal carotid artery stenosis which is depicted on the CTA of the neck. Electronically signed by: Hernandez Cali M.D. 04/20/2017 11:07 PM Dictated Date/Time: 04/20/2017 10:56 PM
--- NOTE | 2017-04-20 23:28 | DIAGNOSTIC IMAGING REPORT ---
CT ANGIOGRAPHY OF THE NECK WITH CONTRAST CLINICAL HISTORY: Syncope. Possible stroke. Carotid artery stenosis. COMPARISON STUDY: Carotid ultrasound performed earlier today. Technique: CT angiography of the carotid and vertebral arteries was obtained using OptiraCredible 320 IV and 3D reconstruction on an independent workstation. NASCET criteria was utilized. A dose lowering technique was utilized adhering to the principles of ALARA. Findings: A mildly enlarged right paratracheal lymph node is unchanged since CT of December 13, 2016. Lung apices are unremarkable. There is no cervical lymphadenopathy. No suspicious osseous lesions are present. Epiglottis is normal. The origin of the brachiocephalic trunk is patent. There is tortuosity with stenosis at the origin of the right common carotid artery with suspected moderate stenosis at the origin of this vessel. The origin of the proximal right internal carotid artery is patent. However, there is severe stenosis of the proximal right internal carotid artery. Stenosis extends for 6 mm and begins 9 mm distal to the vessel origin. There is a string sign with 95-99% stenosis of the proximal right internal carotid artery. There is moderate to severe stenosis of the proximal right subclavian artery which is suboptimally assessed on this exam given mild motion artifact. There may be mild stenosis at the origin of the right vertebral artery. The origin of the left common carotid artery is patent. There is moderate plaque within the proximal left internal carotid artery that results in 40-50% narrowing of this vessel at the vessel origin. There is no dissection within the major vessels of the neck. Origin of the left vertebral artery is suboptimally assessed on this examination due to streak artifact from adjacent contrast. There may be moderate stenosis at the vessel origin. IMPRESSION: 1. Severe (95-99%) stenosis of the proximal right internal carotid artery with a string sign that extends for 6 mm. Stenosis begins 9 mm distal to vessel origin. 2. 40-50% stenosis of the proximal left internal carotid artery. 3. Tortuosity with suspected moderate stenosis at the origin of the right common carotid artery. 4. Moderate to severe stenosis of the proximal right subclavian artery. The findings could be correlated with clinical evidence for subclavian steal syndrome, given bidirectional flow within the right vertebral artery by ultrasound. 5. Suspected stenoses at the origins of the bilateral vertebral arteries which are suboptimally assessed on this exam due to artifact. 6. No dissection within the neck. Electronically signed by: Hernandez Cali M.D. 04/20/2017 11:27 PM Dictated Date/Time: 04/20/2017 11:09 PM
[2017-04-20 23:59] VITALS: BP_SYST 156; BP_SYST 157; BP_SYST 158; BP_DIAS 72; BP_DIAS 74; BP_DIAS 77; PULSE 54; TEMP 36.8; O2SAT 92
[2017-04-21] VITALS (8 sets, daily range): BP systolic 140–193; BP diastolic 74–94; PULSE 55–64; TEMP 36.3–37; O2SAT 92–96
[2017-04-21 07:25] LABS: BASO % 0.4 %; BASO ABS # 0.02 K/uL (0-0.2); EOS % 2.4 %; EOS ABS # 0.13 K/uL (0-0.5); HEMATOCRIT 37.3 % (42-52); HEMOGLOBIN 12.2 g/dL (14.0-18.0); IG# 0.02 K/uL (0.00-0.02); LYMPH ABS # 1.53 K/uL (1.2-3.4); MEAN CELL VOLUME 90.5 fL (80-100); MEAN CORPUSCULAR HEMOGLOBIN 29.6 pg (25-34); MEAN CORPUSCULAR HGB CONC 32.7 g/dl (32-36); MEAN PLATELET VOLUME 10.9 fL (7.4-10.4); MONO % 10.6 %; MONO ABS # 0.58 K/uL (0.11-0.59); NEUT % 58.2 %; NEUT ABS # 3.19 K/uL (1.4-6.5); PLATELET COUNT 125 K/uL (130-400); RED CELL DISTRIBUTION WIDTH CV 15.1 % (11.5-14.5); RED CELL DISTRIBUTION WIDTH SD 50.2 fL (36.4-46.3); WHITE BLOOD COUNT 5.47 K/uL (4.8-10.8)
[2017-04-21 07:51] LABS: CALCIUM 7.9 mg/dl (8.5-10.1); CREATININE 1.01 mg/dl (0.60-1.40); POTASSIUM 3.8 mmol/L (3.5-5.1)
[2017-04-21 08:33] LABS: HEMOGLOBIN A1C 5.5 % (4.5-5.6)
[2017-04-21] MEDS: METOPROLOL TARTRATE 25 MG TAB PO SCH (08:52)
[2017-04-21] MEDS: SODIUM CHLORIDE 0.9% 1000ML 1,000 ML IV SCH (08:53)
[2017-04-21] MEDS: HEPARIN SOD 5000 UNIT/0.5 ML CARP SQ SCH (08:54)
[2017-04-21] MEDS ORDERED: ASPIRIN 81 MG ECTAB PO SCH (09:00)
[2017-04-21] MEDS ORDERED: ATORVASTATIN 40 MG TAB PO SCH (09:00)
[2017-04-21] MEDS ORDERED: CLOPIDOGREL BISULFATE 75 MG TAB PO SCH (09:00)
[2017-04-21] MEDS ORDERED: CHOLECALCIFEROL 1000 INTER.UNIT TAB PO SCH (09:00)
[2017-04-21] MEDS ORDERED: CITALOPRAM 40 MG TAB PO SCH (09:00)
--- NOTE | 2017-04-21 09:36 | Surgery Consultation ---
Consultation Date of Service Apr 21, 2017. Chief Complaint R ICAS History of Present Illness The patient is a 81 year old male with multiple medical problems, including CAD s/p CABG x7, aortic stenosis, HTN, admitted d/t generalized weakness and questionable syncope, seen in consultation today for R ICA stenosis noted on imaging. Pt states he had been feeling generally weak for a few days, then at [employer] had an episode where he felt very warm and sat down and possibly passed out vs fell asleep. No fall to ground. Pt denies any recent illness, cough, fever, chest pain, abd pain, N/V, rest pain, claudication, other complaints. States he typically walks or rides bus 7 [place] to the [place], and needs to stop a few times d/t SOB, but this is typical d/t his Aortic stenosis. Carotid US indicates severe R ICA stenosis, but CTA demonstrates a more distal stenosis in cavernous R ICA as well. Vitals Vital Signs Past 12 Hours Date Time Temp Pulse Resp B/P (MAP) Pulse Ox O2 Delivery O2 Flow Rate FiO2 04/21/17 07:41 36.8 60 18 193/81 (118) 96 Room Air 04/21/17 04:00 Room Air 04/21/17 03:28 37.0 64 18 151/76 (101) 94 04/20/17 23:59 36.8 54 16 157/77 (103) 92 Room Air 156/72 (100) 158/74 (102) 04/20/17 23:59 Room Air Allergies Coded Allergies: No Known Allergies (Verified , 04/20/17) Home Medications Scheduled Aspirin (Aspirin Ec), 81 MG PO DAILY Atorvastatin (Lipitor), 80 MG PO DAILY Cholecalciferol (Vitamin D 1000 Unit), 1,000 INTER.UNIT PO DAILY Citalopram Hydrobromide (Celexa), 40 MG PO DAILY Clopidogrel (Plavix), 75 MG PO DAILY Metoprolol Tartrate (Lopressor) (Lopressor), 25 MG PO BID Problem List Medical Problems: (1) Aortic stenosis (2) Aortocoronary Bypass (3) Depressive Disorder Nec (4) Diverticulosis Colon (W/O Ment Of Hemorrhage) (5) Hypertension Nos (6) Lumbosacral 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 (8) NSTEMI hx of cad cabg (9) Syncope Surgical Problems: (1) History of partial colectomy (2) S/P CABG (coronary artery bypass graft) Surgical / Medical History Hx Cardiac Surgery: Yes (CABG X 6/7) Hx Abdominal Surgery: Yes (PARTIAL COLECTOMY, hernia repair) Hx Cancer Surgery: No Hx Thoracic Surgery: No Hx Orthopedic: No Hx Urinary Tract Surgery: No HX Other Surgery: Yes (colonoscopy) Past Medical/Surgical History: CABG, Heart Disease, High Cholesterol, Hypertension Family History Cancer Heart disease Hypertension Seizures Social History Smoking Status: Never Smoker Hx Tobacco Use In Past Year?: No Hx Alcohol Use - Type & Amnt: No (denies) Hx Substance Use -Type & Amnt: No Review of Systems Constitutional: No chills, No fever, No malaise Skin: No change in color Eyes: No visual changes ENMT: No sore throat Respiratory: + SELF, + short of breath, No cough, No hemoptysis Cardiovascular: No chest pain, No palpitations, No syncope Gastrointestinal: No abdominal pain, No nausea, No vomiting Neurologic: + weakness, No dizziness, No headache, No numbness, No tingling Physical Exam Constitutional: General Apperance: well-nourished, well-developed Level of Distress: NAD Psychiatric: Mental Status: active & alert, normal mood, normal affect Orientation: oriented except where noted, to time, to place, to person Memory: recent memory normal, remote memory normal Head: normocephalic, atraumatic Eyes: EOM: EOMI ENMT: normal ENT inspection, hearing grossly normal Neck: supple, trachea midline Lungs: Respiratory effort: no dyspnea Auscultation: no rales/crackles, no rhonchi, decreased breath sounds Cardiovascular: Apical Impulse: not displaced Heart Auscultation: RRR, no rubs, no gallops, II/ SYEDA Peripheral Pulses: Pulses: full and equal, in all extremities except if noted Bruits: none appreciated Carotid Pulse: normal on the left, normal on the right Brachial Pulses: normal on the left, normal on the right Radial Pulse: normal on the left Femoral Pulse: normal on the left, normal on the right Posterior Tibialis Pulse: normal on the left, normal on the right Dorsalis Pedis Pulse: decreased on the left, decreased on the right Abdomen: Bowel Sounds: normal Inspection & Palpation: soft, non-distended, no tenderness, guarding & rebound Musculoskeletal: normal strength (5/5 throughout), normal tone Extremities: Upper Right: no cyanosis, no edema, no varicosities Upper Left: no cyanosis, no edema, no varicosities Lower Right: no cyanosis, no edema, no varicosities Lower Left: no cyanosis, no edema, no varicosities Neurologic: Cranial Nerves: grossly intact Sensation: grossly intact Assessment and Plan ASSESSMENT and PLAN: R ICA stenosis and cavernous ICA stenosis Weakness, possible syncope Pt sx inconsistent with TIA, and while pt does have R ICA stenosis, his vertebral arteries and L ICA are patent and unlikely to be the cause of weakness /syncope. Noted to have severe proximal R ICA stenosis and more distal, cavernous ICA stenosis. Pt also seen by Dr Oconnor, who reviewed imaging. Due to severe distal stenosis, performing R CEA on more proximal stenosis would not provide protection from embolic event. Does not recommend surgical intervention at this time. IF pt were to become symptomatic with TIA, could consider for [employer]/stenting of distal lesion by neurosurgical interventional radiologist at tertiary center, as well as surgical intervention on proximal stenosis by CEA or stenting, however, d/t location of distal lesion, would be relatively high risk for intraoperative CVA. This was discussed with pt. Please call if needed.
--- NOTE | 2017-04-21 10:05 | Neurology Consultation ---
Neurology Consultation Date of Consultation: Apr 21, 2017. Attending Physician: Candie Sher MD Primary Care Physician: Kurt Crawley M.D. Reason for Consultation: Syncope History of Present Illness Source: patient, hospital records The patient is an 81-year-old male who was admitted for further evaluation after a syncopal episode that occurred at [facility]. The patient recalls feeling dizzy, sweaty, hot, and nauseous prior to the episode. There may have been a brief loss of consciousness although no convulsive activity was witnessed. The patient complains that he has been feeling fatigued for the past few days and indicates that he has not really been eating or drinking very much. He complains of episodic feeling of weakness affecting the upper limbs, especially the right. He also complains of experiencing some difficulty with vision affecting the right eye that has been persistent for the past few months. He does not have a known history of stroke or TIA. Past medical history is notable for left-sided craniotomy for treatment of trigeminal neuralgia in the mid to late 1980s. Past medical history also notable for coronary artery disease, multivessel coronary artery bypass grafting, severe aortic stenosis, hypertension, and myocardial infarction. Electrocardiogram revealed sinus bradycardia, 54 bpm I reviewed the images as well as the radiologist's interpretation of a CT of the head completed upon presentation. The study reveals extensive, chronic, small vessel disease as well as an area of encephalomalacia affecting the left cerebellum with evidence of a left occipital craniotomy. There is a small area of encephalomalacia within the right frontal lobe as well. CT angiography of the head and neck has also been completed. There is evidence of a 95-99% stenosis of the proximal right internal carotid artery, there is a 40-50% stenosis of the proximal left internal carotid artery, there is moderate to severe stenosis of the proximal right subclavian artery suggestive of subclavian steal syndrome. CT angiography of the head reveals a moderate to severe stenosis of the cavernous portion of the right internal carotid artery. Carotid ultrasound reveals bidirectional flow for the right vertebral artery consistent with subclavian steal phenomena. The right internal carotid artery stenosis is greater than 70% on this study. The left internal carotid artery stenosis is 50-69% on this study. Past Medical/Surgical History Medical Problems: (1) Aortic stenosis Status: Chronic (2) Dizziness Status: Acute (3) Elevated troponin I level Status: Acute Family History Noncontributory Social History Smoking Status: Never smoker Smokeless Tobacco Use: No Alcohol Use: occasionally (maybe once per month) Drug Use: none Marital Status: single Housing Status: lives with roommate Occupation Status: retired Allergies Coded Allergies: No Known Allergies (Verified , 04/20/17) Current Inpatient Medications Current Inpatient Medications Medications (Trade) Dose Ordered Sig/Danny Route Start Time Stop Time Status Last Admin Dose Admin Heparin Sodium (Porcine) (Heparin Sq 5000 Unit/0.5ml) 5,000 unit Q12 SQ 04/20/17 21:00 05/20/17 20:59 04/21/17 08:54 5,000 UNIT Aspirin (Ecotrin Tab) 81 mg DAILY PO 04/21/17 09:00 05/21/17 08:59 04/21/17 08:52 81 MG Atorvastatin Calcium (Lipitor Tab) 80 mg DAILY PO 04/21/17 09:00 05/21/17 08:59 04/21/17 08:52 80 MG Cholecalciferol (Vitamin D Tab) 1,000 inter.unit DAILY PO 04/21/17 09:00 05/21/17 08:59 04/21/17 08:52 1,000 INTER.UNIT Citalopram Hydrobromide (celeXA TAB) 40 mg DAILY PO 04/21/17 09:00 05/21/17 08:59 04/21/17 08:52 40 MG Clopidogrel Bisulfate (plAVix TAB) 75 mg DAILY PO 04/21/17 09:00 05/21/17 08:59 04/21/17 08:52 75 MG Metoprolol Tartrate (Lopressor Tab) 25 mg BID PO 04/20/17 21:00 05/20/17 20:59 04/21/17 08:52 25 MG Miscellaneous Information (Pharmacist Discharge Med Rec Consult) 1 ea UD PRN N/A 04/20/17 16:00 05/20/17 15:59 Sodium Chloride 1,000 ml @ 75 mls/hr [id number] IV 04/20/17 16:30 05/20/17 16:29 04/21/17 08:53 75 MLS/HR Acetaminophen (Tylenol Tab) 650 mg Q4H PRN PO 04/20/17 16:00 05/20/17 15:59 Miscellaneous (Iv Fluids Completed) 1 ea PRN PRN N/A 04/20/17 19:00 04/20/18 18:59 Review of Systems Constitutional: As per history of present illness but no fever or chills Eyes: As per history of present illness ENT: No vertigo or hearing loss Neurological: As per history of present illness Cardiovascular: As per history of present illness: The patient denies experiencing any significant chest pain or palpitations Respiratory: No coughing wheezing or shortness of breath Musculoskeletal: No myalgias A full 10 point review of systems was obtained from this patient with pertinent positives and negatives as described in history of present illness and otherwise listed above. All remaining systems reviewed and are negative. Physical Exam Vital Signs (Past 24 Hrs): Date Time Temp Pulse Resp B/P (MAP) Pulse Ox O2 Delivery O2 Flow Rate FiO2 04/21/17 07:41 36.8 60 18 193/81 (118) 96 Room Air 04/21/17 04:00 Room Air 04/21/17 03:28 37.0 64 18 151/76 (101) 94 04/20/17 23:59 36.8 54 16 157/77 (103) 92 Room Air 156/72 (100) 158/74 (102) 04/20/17 23:59 Room Air 04/20/17 20:00 Room Air 04/20/17 19:39 36.6 54 18 136/73 (94) 93 Room Air 04/20/17 16:45 36.9 53 18 137/66 (89) 97 Room Air 04/20/17 16:07 95 18 108/68 95 Room Air 04/20/17 14:20 96 Room Air 04/20/17 14:08 53 20 101/55 96 Room Air 04/20/17 12:39 95 Room Air 04/20/17 12:22 54 04/20/17 12:08 36.4 57 16 115/67 98 Room Air The patient is a well-developed, well-nourished elderly male. He is sitting up comfortably in bed in no acute distress. He is alert and fully oriented. Recent and remote memory intact. Attention and concentration normal. Patient exhibits a normal spontaneous speech pattern as well as an age-appropriate fund of knowledge and normal vocabulary. Visual mccall full to confrontation. Visual acuity for the right eye impaired, visual acuity for the left eye normal. Pupils equal round reactive to light and accommodation. Eye movements normal. There is no nystagmus. Facial sensation intact. There is no facial droop. Hearing intact to finger rub bilaterally. Palate elevates to midline. Shoulder shrug strength intact bilaterally. Tongue protrudes to midline. Sensation intact to light touch, temperature, vibration, and proprioception for all 4 limbs. Deep tendon reflexes are intact and symmetrical. Plantar responses downgoing bilaterally. There is no dysdiadochokinesia or dysmetria of finger to nose or heel to jett bilaterally. I'm unable to adequately visualize the optic nerves and posterior segments with direct ophthalmoscopic examination. Carotid pulses intact bilaterally. There are bilateral carotid bruits. Cardiac rhythm regular. There is a loud systolic murmur at the right sternal border. Gait and station normal. Muscle strength and tone normal for the arms and legs bilaterally. There is no atrophy. No abnormal movements observed. Laboratory Results Past 24 Hours: 04/21/17 07:05 Red Blood Count 4.12, Mean Corpuscular Volume 90.5, Mean Corpuscular Hemoglobin 29.6, Mean Corpuscular Hemoglobin Concent 32.7, Mean Platelet Volume 10.9, Neutrophils (%) (Auto) 58.2, Lymphocytes (%) (Auto) 28.0, Monocytes (%) (Auto) 10.6, Eosinophils (%) (Auto) 2.4, Basophils (%) (Auto) 0.4, Neutrophils # (Auto ) 3.19, Lymphocytes # (Auto) 1.53, Monocytes # (Auto) 0.58, Eosinophils # (Auto ) 0.13, Basophils # (Auto) 0.02 04/21/17 07:05 Test 04/20/17 12:39 04/20/17 13:19 04/20/17 18:38 04/21/17 00:19 Prothrombin Time 10.9 SECONDS (9.0-12.0) Prothromb Time International Ratio 1.0 (0.9-1.1) Activated Partial Thromboplast Time 23.6 SECONDS (21.0-31.0) Partial Thromboplastin Ratio 0.9 Estimated Average Glucose 111 mg/dl Hemoglobin A1c 5.5 % (4.5-5.6) Magnesium Level 1.9 mg/dl (1.8-2.4) Total Bilirubin 1.2 mg/dl (0.2-1) Direct Bilirubin 0.2 mg/dl (0-0.2) Aspartate Amino Transf (AST/SGOT) 25 U/L (15-37) Alanine Aminotransferase (ALT/SGPT) 29 U/L (12-78) Alkaline Phosphatase 125 U/L (45-117) Pro-B-Type Natriuretic Peptide 1216 pg/ml (0-1800) Total Protein 7.3 gm/dl (6.4-8.2) Albumin 3.6 gm/dl (3.4-5.0) Lipase 136 U/L (73-393) Thyroid Stimulating Hormone (TSH) 5.520 uIu/ml (0.300-4.500) Free Thyroxine 1.10 ng/dl (0.80-1.60) Free Triiodothyronine 3.26 pg/ml (2.30-4.20) Urine Color ORANGE Urine Appearance CLEAR (CLEAR) Urine pH 5.5 (4.5-7.5) Urine Specific [place] 1.021 (1.000-1.030) Urine Protein 2+ (NEG) Urine Glucose (UA) NEG (NEG) Urine Ketones TRACE (NEG) Urine Occult Blood NEG (NEG) Urine Nitrite NEG (NEG) Urine Bilirubin NEG (NEG) Urine Urobilinogen POS (NEG) Urine Leukocyte Esterase SMALL (NEG) Urine WBC (Auto) 10-30 /hpf (0-5) Urine RBC (Auto) 5-10 /hpf (0-4) Urine Hyaline Casts (Auto) 10-30 /lpf (0-5) Urine Epithelial Cells (Auto) 20-30 /lpf (0-5) Urine Bacteria (Auto) NEG (NEG) Lyme Disease IgG Antibody NEG (NEG) Lyme Disease IgM Antibody NEG (NEG) Troponin I 0.108 ng/ml (0-0.045) Test 04/21/17 07:05 White Blood Count 5.47 K/uL (4.8-10.8) Red Blood Count 4.12 M/uL (4.7-6.1) Hemoglobin 12.2 g/dL (14.0-18.0) Hematocrit 37.3 % (42-52) Mean Corpuscular Volume 90.5 fL (80-100) Mean Corpuscular Hemoglobin 29.6 pg (25-34) Mean Corpuscular Hemoglobin Concent 32.7 g/dl (32-36) Platelet Count 125 K/uL (130-400) Mean Platelet Volume 10.9 fL (7.4-10.4) Neutrophils (%) (Auto) 58.2 % Lymphocytes (%) (Auto) 28.0 % Monocytes (%) (Auto) 10.6 % Eosinophils (%) (Auto) 2.4 % Basophils (%) (Auto) 0.4 % Neutrophils # (Auto) 3.19 K/uL (1.4-6.5) Lymphocytes # (Auto) 1.53 K/uL (1.2-3.4) Monocytes # (Auto) 0.58 K/uL (0.11-0.59) Eosinophils # (Auto) 0.13 K/uL (0-0.5) Basophils # (Auto) 0.02 K/uL (0-0.2) RDW Standard Deviation 50.2 fL (36.4-46.3) RDW Coefficient of Variation 15.1 % (11.5-14.5) Immature Granulocyte % (Auto) 0.4 % Immature Granulocyte # (Auto) 0.02 K/uL (0.00-0.02) Anion Gap 8.0 mmol/L (3-11) Est Creatinine Clear Calc Drug Dose 60.5 ml/min Estimated GFR () 80.5 Estimated GFR (Non- 69.4 BUN/Creatinine Ratio 20.1 (10-20) Calcium Level 7.9 mg/dl (8.5-10.1) Iron Level 73 mcg/dl (35-175) Total Iron Binding Capacity 252 mcg/dl (250-450) Transferrin 202 mg/dl (200-360) Transferrin % Saturation 26 % (20-50) Ferritin 206.4 ng/ml (8.0-388.0) Triglycerides Level 109 mg/dl (0-150) Cholesterol Level 82 mg/dl (0-200) HDL Cholesterol 24 mg/dl LDL Cholesterol, Calculated 36 mg/dl VLDL Cholesterol, Calculated 22 mg/dl Cholesterol/HDL Ratio 3.4 Vitamin B12 Level 198 pg/mL (211-911) Folate 12.77 ng/mL (>5.38) Impression Vasovagal syncope. Severe stenosis of the right internal carotid artery. Although this finding would not explain his syncope, it may have some bearing on his persistent vision loss to the right eye. Right subclavian steal phenomena. This problem is sometimes associated with syncope and may have some bearing on his complain of episodic weakness of the right arm as well. Plan Consultation with vascular surgery in light of the critical stenosis of the proximal right internal carotid artery. This patient's right subclavian steal phenomenon could also potentially be addressed with vascular surgery. However, in light of this patient's severe aortic stenosis and multivessel coronary artery disease he may be more appropriately managed at a tertiary center. Continue aspirin, Plavix, and Lipitor. Conservative management of patient's hypertension as he would not likely tolerate aggressive lowering of blood pressure. No further recommendations at this time Please contact me if I may be of further assistance
--- NOTE | 2017-04-21 11:57 | ECHOCARDIOGRAM REPORT ---
*NOTICE TO RECEIVING LIBERTARIAN AGENCY This information is strictly Confidential and protected under [place] law. [place] law prohibits you from making any further disclosure of this information unless further disclosure is expressly permitted by the written consent of the person to whom it pertains or is authorized by law. A general authorization for the release of medical or other information is not sufficient for this purpose. Hospital accepts no responsibility if the information is made available to any other person, INCLUDING THE PATIENT. Interpretation Summary * Conclusions -- * Left ventricular systolic function is normal. * No regional wall motion abnormalities noted. * Ejection Fraction = 60-65%. * There is moderate concentric left ventricular hypertrophy. * Moderate to severe valvular aortic stenosis. * Mild aortic regurgitation. Procedure Details * A complete two-dimensional transthoracic echocardiogram was performed (2D, M-mode, Doppler and color flow Doppler). * The study was technically difficult. * A contrast injection of Definity was performed to improve assessment of LV function. * Contrast was injected into an intravenous site in the right arm. * One vial of Definity ultrasound contrast was diluted in normal saline to a total volume of 10 ml. A total of '2' ml of solution was administered during imaging. * Lot # [id number] of Definity utilized for procedure. * Expiration date 1 JUN 02. * The attending nurse who injected the contrast agent was LACHELLE CARVAJAL RN. * A saline contrast injection was performed to assess for cardiac shunting. * The injection was performed through an intravenous line in the right arm. * The attending nurse who injected the saline contrast was LACHELLE CARVAJAL, RN. * A total of 10 cc of agitated saline was given. Left Ventricle * The left ventricle is normal in size. * There is moderate concentric left ventricular hypertrophy. * Left ventricular systolic function is normal. * Ejection Fraction = 60-65%. * No regional wall motion abnormalities noted. Right Ventricle * The right ventricle is not well visualized. Atria * The left atrium is mildly dilated. * Right atrium not well visualized. * Injection of contrast documented no interatrial shunt. Mitral Valve * The mitral valve is grossly normal. * There is no mitral valve stenosis. * There is mild mitral regurgitation. Tricuspid Valve * The tricuspid valve is not well visualized, but is grossly normal. * There is no tricuspid stenosis. * Significant tricuspid regurgitation is absent. Aortic Valve * The aortic valve is tricuspid. The leaflet thickness if normal. There is no aortic stenosis, and no significant insufficiency. * Moderate to severe valvular aortic stenosis. * Mild aortic regurgitation. Pulmonic Valve * The pulmonary valve is not well seen, but the Doppler examination is normal without significant regurgitation or stenosis. Great Vessels * The aortic root is normal size. * The pulmonary is not well visualized. Pericardium/Pleural * There is no pericardial effusion. Great Vessels * Normal inferior vena cava size and collapsability with sniff indicates a normal right atrial pressure of 3 mmHg Left Ventricular Diastolic Function * Diastolic dysfunction, Grade II (pseudonormalization pattern). MMode 2D Measurements and Calculations IVSd 1.9 cm IVSs 2.0 cm LVIDd 3.6 cm LVIDs 1.7 cm LVPWd 1.6 cm LVPWs 1.7 cm IVS/LVPW 1.2 FS 52.7 % EDV(Teich) 55.3 ml ESV(Teich) 8.6 ml EF(Teich) 84.5 % EDV(cubed) 47.6 ml ESV(cubed) 5.0 ml EF(cubed) 89.4 % % IVS thick 4.9 % % LVPW thick 2.6 % LV mass(C)d 269.9 grams LV mass(C)dI 136.5 grams/m\S\2 LV mass(C)s 128.6 grams LV mass(C)sI 65.0 grams/m\S\2 SV(Teich) 46.7 ml SI(Teich) 23.6 ml/m\S\2 SV(cubed) 42.6 ml SI(cubed) 21.5 ml/m\S\2 Ao root diam 3.6 cm Ao root area 10.1 cm\S\2 LA dimension 3.7 cm LA/Ao 1.0 LVOT diam 2.0 cm LVOT area 3.1 cm\S\2 LVAd ap4 29.4 cm\S\2 LVLd ap4 8.0 cm EDV(MOD-sp4) 91.0 ml EDV(sp4-el) 91.5 ml LVAs ap4 18.3 cm\S\2 LVLs ap4 6.3 cm ESV(MOD-sp4) 43.9 ml ESV(sp4-el) 44.7 ml EF(MOD-sp4) 51.8 % EF(sp4-el) 51.1 % LVAd ap2 34.5 cm\S\2 LVLd ap2 8.1 cm EDV(MOD-sp2) 120.4 ml EDV(sp2-el) 124.1 ml LVAs ap2 23.6 cm\S\2 LVLs ap2 7.2 cm ESV(MOD-sp2) 66.1 ml ESV(sp2-el) 65.9 ml EF(MOD-sp2) 45.1 % EF(sp2-el) 46.9 % LVLd %diff 1.4 % EDV(MOD-bp) 104.7 ml LVLs %diff 11.8 % ESV(MOD-bp) 55.5 ml EF(MOD-bp) 47.0 % SV(MOD-sp4) 47.1 ml SI(MOD-sp4) 23.8 ml/m\S\2 SV(MOD-sp2) 54.3 ml SI(MOD-sp2) 27.5 ml/m\S\2 SV(MOD-bp) 49.3 ml SI(MOD-bp) 24.9 ml/m\S\2 SV(sp4-el) 46.7 ml SI(sp4-el) 23.6 ml/m\S\2 SV(sp2-el) 58.2 ml SI(sp2-el) 29.4 ml/m\S\2 Doppler Measurements and Calculations MV E max belkys 83.0 cm/sec MV A max belkys 52.3 cm/sec MV E/A 1.6 MV P1/2t max belkys 82.8 cm/sec MV P1/2t 120.5 msec MVA(P1/2t) 1.8 cm\S\2 MV dec slope 201.4 cm/sec\S\2 MV dec time 0.31 sec Ao V2 max 270.9 cm/sec Ao max PG 29.4 mmHg Ao max PG (full) 26.4 mmHg Ao V2 mean 212.3 cm/sec Ao mean PG 19.6 mmHg Ao V2 VTI 77.7 cm LALI(V,A) 0.99 cm\S\2 LALI(V,D) 0.99 cm\S\2 AI max belkys 419.3 cm/sec AI max PG 70.3 mmHg AI dec slope 208.5 cm/sec\S\2 AI P1/2t 589.0 msec LV V1 max PG 3.0 mmHg LV V1 max 86.5 cm/sec MR max belkys 577.4 cm/sec MR max PG 133.6 mmHg SV(Ao) 781.1 ml SI(Ao) 395.0 ml/m\S\2 PA V2 max 101.8 cm/sec PA max PG 4.1 mmHg
--- NOTE | 2017-04-21 12:25 | DIAGNOSTIC IMAGING REPORT ---
HEAD CT NONCONTRAST CT DOSE: 537.48 mGy.cm HISTORY: Weakness. Dizziness. follow-up rule out CVA, cannot have MRI TECHNIQUE: Multiaxial CT images of the head were performed without the use of intravenous contrast. Automated exposure control was utilized for this study. A dose lowering technique was utilized adhering to the principles of ALARA. Comparison: Head CT 04/20/2017. Findings: The paranasal sinuses and mastoid air cells are clear. The calvarium and skull base are intact. There is no mass, hematoma, midline shift, acute infarct. White matter hypodensity is nonspecific but suggestive of microvascular ischemic change. The ventricles and sulci demonstrate mild age-related involutional changes. Left suboccipital craniectomy is again noted. Encephalomalacia is seen within the left cerebellar hemisphere and right frontal lobe remain unchanged. Impression: No significant change compared to the prior study. No acute intracranial abnormality. Electronically signed by: Bruce Rhodes M.D. 04/21/2017 12:24 PM Dictated Date/Time: 04/21/2017 12:10 PM
--- NOTE | 2017-04-21 12:50 | CARDIOLOGY CONSULTATION REPORT ---
DATE OF CONSULTATION: 04/21/2017 REASON FOR CONSULTATION: 1. Near syncope/possible syncopal episode. 2. Moderate Severe . 3. CAD status post CABG x6 vessels, 1996 with subsequent stents to bypass grafts. 4. Elevated troponin I. HISTORY OF PRESENT ILLNESS: Mr. Briceño is a very pleasant 81-year-old white male with a history of CAD status post CABG x6 vessels, 1996 (ORO to LAD, SVG to D1, sequential SVG to OM1 and OM2, sequential SVG to RCA and PDA), stent in SVG to RCA and PDA in 2003, dyslipidemia with low HDL, depression, hypertension, obesity, and a remote history of colon cancer status post colonic resection in 2001 who was admitted acutely to [facility] on 04/20/2017 after experiencing a near syncopal or syncopal episode in shinto. Admittedly, the patient had not been feeling well in the days leading up to his admission. He has had loose stools on a daily basis and he has been nauseated recently. As a result, he has not been eating or drinking as much he should. The patient had been standing in a shinto row for several minutes, he began to feel hot, sweaty, shaky and became very lightened. He does not recall if he blacked out or not, but he does not recall sitting down or part of the shinto services yesterday. He is uncertain how long this lasted. One of his friends who was with him suggested he seek further medical evaluation. Please note that we have been following him for his chronic exertional dyspnea and severe aortic stenosis for some time now. In 2014, I sent him to [facility] for TAVR evaluation. They did a preprocedural catheterization on him, and he was noted to have high grade stenosis in the sequential saphenous vein graft to OM1 and OM2. He underwent deployment of a Promus 4.0 x 12 mm drug-eluting stent in the proximal SVG to OM1 and OM2 and a 4.0 x 8 mm drug-eluting stent in the ostium of the SVG to OM1 and OM2. He did not have a TAVR procedure done. Thereafter, he did reasonably well for 3-4 months, but then developed recurrent exertional dyspnea. At the present time, the patient states that he is feeling quite well. Much better than he did yesterday. He has not been lightheaded or dizzy, but has not been out of bed and walking around that much. He denies any chest pain, heaviness, tightness, pressure, or angina pectoris. No shortness of breath at rest. No orthopnea or PND. No palpitations, tachypalpitations, syncope, or any further near syncope. The patient does admit to chronic stable exertional dyspnea. Earlier this week he walked approximately [address] downtown, and tolerated that with his usual degree of dyspnea. MEDICATIONS: 1. Aspirin 81 mg a day. 2. Lipitor 80 mg daily. 3. Vitamin D 1000 international units daily. 4. Celexa 40 mg daily. 5. Plavix 75 mg a day. 6. Heparin 5000 units subcutaneous injection q. 12 hours. 7. Lopressor 25 mg b.i.d. 8. Normal saline at 75 mL per hour. 9. Tylenol p.r.n. ALLERGIES: NKDA. PAST MEDICAL HISTORY: 1. Anemia. 2. Carotid artery stenosis, currently with a high grade right internal carotid artery stenosis. 3. Moderate left internal carotid artery stenosis. 4. Depression. 5. Hypercholesterolemia. 6. Hypertension. 7. Vascular peripheral neuropathy. 8. History of pulmonary nodule. 9. Multivessel CAD status post CABG x6 vessels in 1996 as described above. 10. Stent deployment in SVG to RCA, PDA, 2003. 11. Dyslipidemia. 12. Hypertension. 13. History of colon cancer. 14. History of stent deployment in the ostial and proximal sequential SVG to OM1 and OM2 in 2014. 15. Severe aortic stenosis. 16. Normal LVEF of 50-55% on echocardiogram, 08/01/2015. 17. Moderate concentric LVH. 18. History of atypical chest pain. 19. History of eczema. FAMILY HISTORY: Significant for stroke and diabetes in his mother. CAD in his father. PHYSICAL EXAMINATION: VITAL SIGNS: Temperature is 36.8 degrees Celsius, pulse is 60 and regular, respiratory rate is 14 and unlabored, blood pressure is 173/89 and SpO2 is 92% on room air. GENERAL: The patient is in no acute distress. HEENT: Head is atraumatic, normocephalic. EOMs intact. Sclerae are anicteric. Face is symmetric. No perioral cyanosis. Mucous membranes moist. NECK: Without JVD. Carotid upstrokes are +2 bilaterally, no obvious bruits. CHEST AND LUNGS: Clear to auscultation throughout all lung mccall. No wheezes, rales, or rhonchi. CARDIOVASCULAR: S1 and S2 are regular with rate approximately 60 beats per minutes with a grade 2-3/6 crescendo-decrescendo basal systolic murmur best heard over right second intercostal space. Aortic valve closer sound still audible at the base. No diastolic murmur appreciated. No gallops or rubs. PMI is nondisplaced. No lifts, heaves, or thrills. No abdominal aortic or renal bruits. ABDOMEN: Bowel sounds are present. No masses, organomegaly, or tenderness. EXTREMITIES: Without edema. NEUROLOGIC: The patient is awake, alert and oriented. Affect is flat chronically. Answers questions appropriately. Speech is clear. Normal movement bilateral upper and lower extremities. Gait pattern not assessed. No focal neurologic deficits noted. LABORATORY DATA: White blood cell count is 5.47, hemoglobin of 12.2 g/dL, hematocrit 37.3%, and platelet count 125,000. Sodium is 138 mmol/L, potassium 3.8 mmol/L, BUN 20 mg/dL with a creatinine 1.01 mg/dL. Random glucose 95 mg/dL. Serum magnesium level is normal at 1.9 mg/dL. TSH is elevated at 5.520. Pro-BNP is 1216 mcg/mL. Troponin I level 0.108, 0.109, and 0.124 ng/mL. Fasting lipid panel shows total cholesterol of 82 mg/dL with an HDL of 24 mg/dL and a calculated LDL of 36 mg/dL. Vitamin B12 level is low at 198 mcg/mL. Urine culture is pending. Telemetry monitoring has shown predominantly normal sinus rhythm to sinus bradycardia with occasional PVCs. CT angiogram of the head and neck shows severe 95-99% stenosis of the proximal right internal carotid artery, 40-50% stenosis of the proximal left internal carotid artery. Moderate to severe stenosis of the proximal right subclavian artery. ASSESSMENT: 1. Profound near syncope versus syncope while standing in shinto yesterday. He did have prodromal warning symptoms. 2. Moderate to Severe aortic stenosis with mild AI. Echocardiogram pending. 3. Multivessel coronary artery disease status post coronary artery bypass grafting x6 vessels remotely, multiple vein graft stents. 4. Chronic diarrhea, Clostridium difficile pending. 5. Hypothyroidism. 5. Elevated troponin I level, suspect this is a chronic troponin I elevation and not evidence of an acute coronary event. 6. Symptomatically and significantly improved. 7. Chronic dyspnea on exertion, likely related to aortic valvular disease. 8. Carotid artery stenosis. PLAN: 1. The patient's profound near syncopal episodes versus syncopal episode sounds as though he had prodromal warning symptoms including feeling hot, flushed, sweating, and shaky. 2. This may represent a simple faint related to standing still for a period of time in a warm environment and having a poor appetite / loose stools/ decreased appetite leading up to this event. Additionally he is on multiple vasoactive medications which could have contributed. 3. Would expect any near syncope or syncope associated with the to occur following or during exertion. 4. Echocardiogram is pending. 5. Continue long-term aspirin 81 mg daily. 6. Continue long-term Plavix 75 mg daily. 7. Continue Lopressor 25 mg b.i.d. 8. Continue high dose Lipitor 80 mg daily. 9. As his blood pressure is improved/high, we would recommend changing IV fluids to KVO. 10. We may need to consider adding additional antihypertensive medication. 11. Vascular surgeon has been consulted regarding carotid artery stenosis. Neurology has also been consulted. 12. C. diff culture is pending. 13. The patient did not have any evidence of orthostasis on orthostatic vital signs yesterday. 14. We recommend ambulating in hallway with standby to see how he feels, and to reassess for any symptoms. 15. We will continue to follow. ANH
[2017-04-21] MEDS ORDERED: CYANOCOBALAMIN 1000 MCG/ML VIAL IM ONE (15:00)
--- NOTE | 2017-04-21 15:14 | Discharge Instructions ---
Discharge Instructions Date of Service Apr 21, 2017. Admission Reason for Admission: Syncope Discharge Discharge Diagnosis / Problem: Syncope Discharge Goals Goal(s): Improve disease control, Diagnostic testing, Therapeutic intervention Activity Recommendations Activity Limitations: resume your previous activity Exercise/Sports Limitations: as tolerated Shower/Bathe: no limitations . Instructions / Follow-Up Instructions / Follow-Up You were admitted due to an episode of passing out. This could have been related to your recent diarrhea, and dehydration, along with a low blood pressure on admission. You were given IV fluids and your blood pressure improved. You felt much better after this. It is important to make sure you are drinking at least 4 glasses of water daily, and eating regular meals. A high fiber diet will help improve your diarrhea, but you should also follow up with your family doctor about this as well. You were found to have several blockages in the arteries of your neck and the blood vessel supplying blood to your right arm. The Cardiology office will be contacting you to arrange an appointment with Dr. Pasha Quarles about if you would be a candidate for a procedure to correct this. Please buy a blood pressure cuff and check your blood pressure in each arm, once daily, after 5 minutes of resting. Please follow up with your PCP within 1-2 weeks. Current Hospital Diet Patient's current hospital diet: AHA Diet (Heart Healthy) Discharge Diet Recommended Diet: AHA Diet (Heart Healthy) Procedures Procedures Performed: CT Head x 2 CT angiogram head and neck Chest xray Carotid artery ultrasound Pending Studies Studies pending at discharge: carmella List of pending studies: Final urine culture Laboratory Results Last 24 Hours Test 04/20/17 18:38 04/21/17 00:19 04/21/17 07:05 Troponin I 0.109 ng/ml 0.108 ng/ml Lyme Disease IgG Antibody NEG Lyme Disease IgM Antibody NEG White Blood Count 5.47 K/uL Red Blood Count 4.12 M/uL Hemoglobin 12.2 g/dL Hematocrit 37.3 % Mean Corpuscular Volume 90.5 fL Mean Corpuscular Hemoglobin 29.6 pg Mean Corpuscular Hemoglobin Concent 32.7 g/dl Platelet Count 125 K/uL Mean Platelet Volume 10.9 fL Neutrophils (%) (Auto) 58.2 % Lymphocytes (%) (Auto) 28.0 % Monocytes (%) (Auto) 10.6 % Eosinophils (%) (Auto) 2.4 % Basophils (%) (Auto) 0.4 % Neutrophils # (Auto) 3.19 K/uL Lymphocytes # (Auto) 1.53 K/uL Monocytes # (Auto) 0.58 K/uL Eosinophils # (Auto) 0.13 K/uL Basophils # (Auto) 0.02 K/uL RDW Standard Deviation 50.2 fL RDW Coefficient of Variation 15.1 % Immature Granulocyte % (Auto) 0.4 % Immature Granulocyte # (Auto) 0.02 K/uL Sodium Level 138 mmol/L Potassium Level 3.8 mmol/L Chloride Level 105 mmol/L Carbon Dioxide Level 25 mmol/L Anion Gap 8.0 mmol/L Blood Urea Nitrogen 20 mg/dl Creatinine 1.01 mg/dl Est Creatinine Clear Calc Drug Dose 60.5 ml/min Estimated GFR () 80.5 Estimated GFR (Non- 69.4 BUN/Creatinine Ratio 20.1 Random Glucose 95 mg/dl Calcium Level 7.9 mg/dl Iron Level 73 mcg/dl Total Iron Binding Capacity 252 mcg/dl Transferrin 202 mg/dl Transferrin % Saturation 26 % Ferritin 206.4 ng/ml Triglycerides Level 109 mg/dl Cholesterol Level 82 mg/dl HDL Cholesterol 24 mg/dl LDL Cholesterol, Calculated 36 mg/dl VLDL Cholesterol, Calculated 22 mg/dl Cholesterol/HDL Ratio 3.4 Vitamin B12 Level 198 pg/mL Folate 12.77 ng/mL Hemoglobin A1c Test 04/20/17 12:39 Range/Units Estimated Average Glucose 111 mg/dl Hemoglobin A1c 5.5 4.5-5.6 % Lipid Panel Test 04/21/17 07:05 Range/Units Triglycerides Level 109 0-150 mg/dl Cholesterol Level 82 0-200 mg/dl HDL Cholesterol 24 mg/dl Cholesterol/HDL Ratio 3.4 LDL Cholesterol, Calculated 36 mg/dl Medical Emergencies . Who to Call and When: Medical Emergencies: If at any time you feel your situation is an emergency, please call 911 immediately. . Non-Emergent Contact Non-Emergency issues call your: Primary Care Provider, Material Requirements Planning Manager Call Non-Emergent contact if: you have a fever, temperature is above 100.5, you have any medication questions . . "Provider Documentation" section prepared by Candie Sher. . VTE Core Measure Inpt VTE Proph given/why not?: Unfractionated heparin SQ
[2017-04-21] MEDS ORDERED: VTMB12 PO (18:13)
--- NOTE | 2017-04-21 20:06 | Discharge Summary ---
Discharge Summary Date of Service Apr 21, 2017. 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 Immunizations: Have You Had Influenza Vaccine: No History of Pneumococcal: No Procedures: CT Head x 2 CT angiogram head and neck Chest xray Carotid artery ultrasound Consultations: Cardiology Neurology Vascular Surgery Medication Reconciliation Continued Medications: Aspirin (Aspirin Ec) 81 Mg Tab 81 MG PO DAILY Atorvastatin (Lipitor) 80 Mg Tab 80 MG PO DAILY, TAB Cholecalciferol (Vitamin D 1000 Unit) 1,000 Unit Cap 1000 INTER.UNIT PO DAILY, CAP Citalopram Hydrobromide (Celexa) 40 Mg Tab 40 MG PO DAILY, TAB Clopidogrel (Plavix) 75 Mg Tab 75 MG PO DAILY Metoprolol Tartrate (Lopressor) (Lopressor) 25 Mg Tab 25 MG PO BID, TAB Discharge Exam Feeling much better on day of discharge. BPs are no longer low and, in fact, were quite high this AM. BP now acceptable after receiving AM antihypertensives. He denies any CP or SOB, says his profound fatigue is resolved. He is happy with eating great meals here and thinks he has not been eating properly at home. He barely drinks throughout the whole day either at home. He ambulated with PT today and felt very strong, not lightheaded at all. Vital signs reviewed NAD, AAO 3, able to name the months of the year backwards without mistake RRR, 3/6 SYEDA heard best at the RUSB Lungs clear to auscultation bilaterally, no wheezes crackles or rhonchi Abdomen positive bowel sounds, soft, nontender, nondistended, laparotomy midline incisional scar present Extremities no edema Skin no rashes Neuro--cranial nerves II through XII intact except right pupil is minimally reactive which as per report is a chronic issue, strength, DTRs, and sensation to light touch are intact in the upper and lower extremities, gait was not tested Review of Systems: Constitutional: No fever, No fatigue Eyes: + worsening of vision (in right eye) ENT: No problem reported Respiratory: + dyspnea on exertion Cardiovascular: No chest pain Abdomen: No pain, No nausea, No diarrhea (none since admission) Musculoskeletal: No problem reported Genitourinary - Male: No problem reported Neurologic: No problem reported Psychiatric: No problem reported Endocrine: No problem reported Hematologic / Lymphatic: No problem reported Integumentary: No problem reported Hospital Course This patient is an 81-year-old male with a history of CAD, hypertension, severe aortic stenosis, hyperlipidemia, history of colon cancer status post partial colectomy, depression, peripheral neuropathy, here with syncope while enduring prolonged standing during buddhist. Given some subtle mental status changes, there is a possibility of a TIA as well. Unfortunately, the patient reports that he cannot have an MRI due to a Margarito patch in the side of his head from his previous trigeminal nerve surgery. -Syncope-seen by Cardiology and not felt to be secondary to his severe aortic stenosis as he was at rest when the syncope occurred. More likely vasovagal from mild hypovolemia and relatively low BP on admission. Has had diarrhea ongoing for a couple of months and admits to not drinking much at all during the day. He improved with IVFs alone. ECHO was unchanged from previous with but not worse than previous. Serial troponins were mildly elevated but stable, chronically elevated and no evidence of ACS. -Neurology saw him and did not think he had a TIA, his repeat CT head 24 hrs later did not show evidence of a new CVA; but Neuro did think his ongoing right eye vision problems could be related to his vascular disease found on imaging ( critical right sided carotid stenosis) and/or syncope related to right sided subclavian steal syndrome. Pt did report feelings of intermittent pain and weakness in his right upper extremity. Discussed case with Cardiology and will have pt see Interventional Cardiology as outpt to discuss possible treatment for subclavian stenosis/steal. Vascular surgery did not feel his critical TOMMY stenosis should be fixed here given more distal stenosis intracranial carotid as well. Pt not keen on this idea either given high risk of CVA with procedure, but if changes his mind, he can be referred to a tertiary care center for further evaluation. -Continue aspirin, Plavix,metoprolol, statin -As for his ongoing diarrhea, he had none while here to collect a sample- advised f/u with PCP -[id number] mildly elevated at 5.52, FT3 and FT4 normal--> f /u with PCP Total Time Spent: Greater than 30 minutes This includes examination of the patient, discharge planning, medication reconciliation, and communication with other providers. Discharge Instructions Please refer to the electronic Patient Visit Report (Discharge Instructions) for additional information. Follow-Up PCP within 1 week Interventional Cardiology within 2-3 weeks Additional Copies To Kurt Crawley M.D.
[2017-04-22] MEDS ORDERED: CYANOCOBALAMIN 1000 MCG/ML VIAL IM SCH (09:00)
== END 2017-04-21 18:41 | disposition home or self-care (01) ==
LOC: C.EDB 12:02 → C.2T 15:33 → ENRESERV 15:44
PROVIDERS: ADMIT Family Medicine; ATTEND Family Medicine
DX: R55 Syncope and collapse (principal); R79.89 Other specified abnormal findings of blood chemistry; I35.0 Nonrheumatic aortic (valve) stenosis; I65.29 Occlusion and stenosis of unspecified carotid artery; I77.1 Stricture of artery; K52.9 Noninfective gastroenteritis and colitis, unspecified; I25.10 Atherosclerotic heart disease of native coronary artery without angina pectoris; E03.9 Hypothyroidism, unspecified; I10 Essential (primary) hypertension; Z85.038 Personal history of other malignant neoplasm of large intestine; Z90.49 Acquired absence of other specified parts of digestive tract; F32.9 Major depressive disorder, single episode, unspecified; G62.9 Polyneuropathy, unspecified; Z79.82 Long term (current) use of aspirin; Z79.899 Other long term (current) drug therapy; Z79.02 Long term (current) use of antithrombotics/antiplatelets; Z95.1 Presence of aortocoronary bypass graft; Z80.9 Family history of malignant neoplasm, unspecified; Z82.49 Family history of ischemic heart disease and other diseases of the circulatory system; Z82.0 Family history of epilepsy and other diseases of the nervous system

== ENCOUNTER → 2017-07-11 | Outpatient (CLI) | payer OTHER ==
[~2017-07-11] MED LIST changes: +ATOR-26 PO; -FERR325T51 PO; -LPR25 PO; +METO25TA56 PO; -PRAV20TA2 PO; +VTMB12 PO
[2017-07-11 17:16] LABS: ALBUMIN 3.7 gm/dl (3.4-5.0); ALT/SGPT 31 U/L (12-78); BLOOD UREA NITROGEN 14 mg/dl (7-18); CALCIUM 8.3 mg/dl (8.5-10.1); CARBON DIOXIDE 26 mmol/L (21-32); CHOLESTEROL 85 mg/dl (0-200); CREATININE 1.05 mg/dl (0.60-1.40); GLUCOSE 81 mg/dl (70-99); POTASSIUM 4.3 mmol/L (3.5-5.1); SODIUM 138 mmol/L (136-145)
[2017-07-11 17:26] LABS: ALKALINE PHOSPHATASE 119 U/L (45-117); AST/SGOT 29 U/L (15-37); LDL CHOLESTEROL CALCULATED 35 mg/dl; TOTAL PROTEIN 7.3 gm/dl (6.4-8.2)
[2017-07-11 17:35] LABS: HEMATOCRIT 38.8 % (42-52); HEMOGLOBIN 12.8 g/dL (14.0-18.0); MEAN CELL VOLUME 90.2 fL (80-100); MEAN CORPUSCULAR HEMOGLOBIN 29.8 pg (25-34); MEAN PLATELET VOLUME 11.6 fL (7.4-10.4); PLATELET COUNT 133 K/uL (130-400); RED CELL DISTRIBUTION WIDTH CV 15.2 % (11.5-14.5); RED CELL DISTRIBUTION WIDTH SD 49.9 fL (36.4-46.3); WHITE BLOOD COUNT 6.54 K/uL (4.8-10.8)
== END | disposition home or self-care (01) ==
LOC: C.LAB1850 14:46
PROVIDERS: ATTEND Internal Medicine
DX: E78.00 Pure hypercholesterolemia, unspecified (principal); E03.9 Hypothyroidism, unspecified; G60.9 Hereditary and idiopathic neuropathy, unspecified; D64.9 Anemia, unspecified; E53.8 Deficiency of other specified B group vitamins